=== PATIENT | male | born 1990 | race Caucasian/White ===

== ENCOUNTER 2019-07-20 07:08 | Emergency (ER) | payer SELFPAY ==
[~2019-07-20] VITALS: Ht 167.6 cm; Wt 104.3 kg
[2019-07-20 08:14] VITALS: Ht 167.6 cm; Wt 104.3 kg
[2019-07-20 08:55] VITALS: BP 134/86
== END 2019-07-20 08:55 | disposition home or self-care (01) ==
LOC: ED 07:08
DX: R43.8 Other disturbances of smell and taste (principal); F17.210 Nicotine dependence, cigarettes, uncomplicated; Z20.828 Contact with and (suspected) exposure to other viral communicable diseases
CPT/HCPCS: U0003-CS